=== PATIENT | female | born 1950 | race Caucasian/White ===

== ENCOUNTER 2018-01-12 08:30 | Emergency (ER) | payer OTHER ==
--- NOTE | 2018-01-12 08:37 | EDPHY ---
H & P Time Seen by Provider: 01/12/18 08:31 HPI/ROS: CHIEF COMPLAINT: Bustamante catheter problem HISTORY OF PRESENT ILLNESS: 67-year-old woman with history of schizophrenia has had a bladder catheter since October of this year for urinary retention which she tells me is due to medications. Has not had any urine output in over 6-8 hours. Feels bloated and has suprapubic fullness and discomfort. No fevers or chills, not associated with back pain or weakness or numbness in extremities except for chronic right drop which she has had after falling on her right leg in September. REVIEW OF SYSTEMS: Eye: no change in vision ENT: no sore throat Cardiac: no chest pain or syncope Pulmonary: no cough or SOB Abdomen: no vomiting, diarrhea, abdominal pain Musculoskeletal: no back pain Skin: no rash Neuro: no headache, foot drop on the right side as noted in the HPI Constitutional: no fever : HPI A comprehensive 10 point review of systems is otherwise negative aside from elements mentioned in the history of present illness. PAST MEDICAL HISTORY: Schizophrenia and indwelling urinary catheter Social history: [facility] General Appearance: Alert and conversant, cooperative. Eyes: No scleral icterus. ENT, Mouth: Normal mucous membranes. Respiratory: Normal respiratory effort, breath sounds equal, lungs are clear to auscultation. Cardiovascular: Regular rate and rhythm. Gastrointestinal: Abdomen is soft and non tender. Suprapubic fullness and distention. Neurological: Alert, face symmetric, normal motor and sensory in extremities, except for right foot drop. Skin: Warm and dry, no rashes. Musculoskeletal: No peripheral edema. Psychiatric: Not agitated. Emergency Department course/MDM: Catheter irrigation performed by the patient's nurse.\ [id number]: Feels better, symptoms resolved. Would treat for urinary tract infection with pyuria and bacteria with catheter obstruction pending culture. Does not appear to have cauda equina, pyelonephritis or sepsis, catheter misposition. Constitutional: Initial Vital Signs Temperature (C) 36.9 C 01/12/18 09:21 Heart Rate 88 01/12/18 09:21 Respiratory Rate 16 01/12/18 09:21 Blood Pressure 166/100 H 01/12/18 09:21 O2 Sat (%) 93 01/12/18 09:21 O2 Delivery Mode Room Air Allergies/Adverse Reactions: Benzodiazepines Allergy (Verified 01/12/18 09:25) oxycodone Allergy (Verified 01/12/18 09:25) Home Medications: Medication Instructions Recorded Aspirin 81mg (*) 01/12/18 Cephalexin [Keflex] 500 mg PO QID #28 cap 01/12/18 Miralax 17 gm (*) 01/12/18 Norvasc 5 mg (*) 01/12/18 Paroxetine HCl 01/12/18 Paxil 01/12/18 Perphenazine 01/12/18 Seroquel 01/12/18 Sertraline HCl 01/12/18 Vitamin B Complex/Folic Acid 01/12/18 Vitamin D3 01/12/18 Medical Decision Making - Data Points Laboratory Results: 01/12/18 09:03 Urine Color YELLOW Urine Appearance MODERATELY TURBID Urine pH 8.0 H (5.0-7.5) Ur Specific [place] 1.010 (1.002-1.030) Urine Protein 1+ H (NEGATIVE) Urine Ketones NEGATIVE (NEGATIVE) Urine Blood 2+ H (NEGATIVE) Urine Nitrate POSITIVE H (NEGATIVE) Urine Bilirubin NEGATIVE (NEGATIVE) Urine Urobilinogen NEGATIVE EU EU (0.2-1.0) Ur Leukocyte Esterase TRACE H (NEGATIVE) Urine RBC 50-182 /hpf H /hpf (0-3) Urine WBC 15-25 /hpf H /hpf (0-3) Ur Epithelial Cells NONE SEEN /lpf /lpf (NONE-1+) Calcium Oxalate Crystal PRESENT /hpf /hpf (NONE-1+) Amorphous Sediment PRESENT /hpf /hpf (NONE-1+) Urine Bacteria 2+ /hpf H /hpf (NONE SEEN) Urine Mucus TRACE /lpf /lpf (NONE-1+) Urine Glucose NEGATIVE (NEGATIVE) Medications Given: Discontinued Medications Cephalexin HCl (Keflex) 500 mg PO EDNOW ONE PRN Reason: Protocol Stop: 01/12/18 09:39 Last Admin: 01/12/18 10:10 Dose: 500 mg Departure - Departure Disposition: Home, Routine, Self-Care Clinical Impression: Bustamante catheter problem Qualifiers: Encounter type: initial encounter Qualified Code(s): T83.9XXA - Unspecified complication of genitourinary prosthetic device, implant and graft, initial encounter Urinary tract infection Qualifiers: Urinary tract infection type: catheter-associated UTI Indwelling urinary catheter type: indwelling urethral catheter Encounter type: initial encounter Qualified Code(s): T83.511A - Infection and inflammatory reaction due to indwelling urethral catheter, initial encounter; N39.0 - Urinary tract infection , site not specified; N39.0 - Urinary tract infection, site not specified Condition: Good Instructions: Cephalexin (By mouth), Bustamante Catheter Placement and Care (ED) Additional Instructions: Call [phone] in 2 days for urine culture result. Referrals: [facility] ,. [Edm Groups for Call Sched] - As per Instructions Prescriptions: Cephalexin [Keflex] 500 mg PO QID #28 cap
[2018-01-12 09:24] VITALS: RESP 16
[2018-01-12] MEDS ORDERED: CEPHALEXIN 500 MG CAP PO ONE (09:38)
[2018-01-12 10:12] VITALS: BP 164/98; PULSE 87; TEMP 97.9; O2SAT 92
== END 2018-01-12 10:50 | disposition home or self-care (01) ==
LOC: EDUNIT# → EDBD
PROC: 0T9B70Z Drainage of Bladder with Drainage Device, Via Natural or Artificial Opening (ICD-10-PCS; principal; 2018-01-12)
DX: T83.511A Infection and inflammatory reaction due to indwelling urethral catheter, initial encounter (principal); N39.0 Urinary tract infection, site not specified; B95.2 Enterococcus as the cause of diseases classified elsewhere; Z79.82 Long term (current) use of aspirin; Y73.2 Prosthetic and other implants, materials and accessory gastroenterology and urology devices associated with adverse incidents

== ENCOUNTER 2018-01-23 04:53 | Emergency (ER) | payer OTHER ==
--- NOTE | 2018-01-23 04:59 | EDPHY ---
H & P Time Seen by Provider: 01/23/18 04:56 HPI/ROS: HPI CHIEF COMPLAINT: Bustamante catheter dislodgement HISTORY OF PRESENT ILLNESS: Patient very pleasant 67-year-old female she has a chronic indwelling Bustamante due to urinary retention, additionally has hypertension and drop foot, she resides at [facility], at some point her Bustamante catheter became dislodged. Patient thinks approximately 5 hr ago. She states that she has been urinating around it. Denies any fever back pain denies vomiting denies significant abdominal pain. She presents by EMS to have her Bustamante catheter readjusted. Past Medical History: Hypertension, urinary retention, dropped foot, chronic indwelling Bustamante Past Surgical History: Hysterectomy Social History: Lives at [facility] Family History: None. ROS REVIEW OF SYSTEMS: A comprehensive 10 point review of systems is otherwise negative aside from elements mentioned in the history of present illness. Exam Constitutional appears well nontoxic, triage nursing summary reviewed, vital signs reviewed, awake/alert. Eyes normal conjunctivae and sclera, EOMI, PERRLA. HENT normal inspection, atraumatic, moist mucus membranes, no epistaxis, neck supple/ no meningismus, no raccoon eyes. Respiratory clear to auscultation bilaterally, normal breath sounds, no respiratory distress, no wheezing. Cardiovascular rate normal, regular rhythm, no murmur, no edema, distal pulses normal. Gastrointestinal no abdominal distention, specifically no suprapubic distention or tenderness, soft, non-tender, no rebound, no guarding, normal bowel sounds, no distension, no pulsatile mass. Genitourinary no CVA tenderness. Musculoskeletal no midline vertebral tenderness, full range of motion, no calf swelling, no tenderness of extremities, no meningismus, good pulses, neurovascularly intact. Skin pink, warm, & dry, no rash, skin atraumatic. Neurologic awake, alert and oriented x 3, AAOx3, moves all 4 extremities equally, motor intact, sensory intact, CN II-XII intact, normal cerebellar, normal vision, normal speech. Psychiatric normal mood/affect. Heme/Lymph/Immune no lymphadenopathy. Differential Diagnosis: Includes but is not limited to in a particular order Bustamante catheter adjustment, Bustamante catheter dislodgement, obstructed Bustamante catheter Medical Decision Making: Plan for this patient will remove her current Bustamante catheter and replace. Re-evaluate. Re-evaluation: 517: Bustamante catheter was replaced. She feels much better after new Bustamante catheter placed. There was clear urine that returned. We repositioned her new catheter she is happy with this. She would like to go back home. Return precautions discussed. She understands return emergency room if she has any worsening symptoms questions or concerns. Source: Patient, EMS - Medical/Surgical History Hx Asthma: No Hx Chronic Respiratory Disease: No Hx Diabetes: No Hx Cardiac Disease: No Hx Renal Disease: No Hx Cirrhosis: No Hx Alcoholism: No Hx HIV/AIDS: No Hx Splenectomy or Spleen Trauma: No Other PMH: hyperlipidemia, schizophrenia, HTN, generalized muscle weakness, falls - Social History Smoking Status: Never smoked Allergies/Adverse Reactions: Benzodiazepines Allergy (Verified 01/12/18 09:25) oxycodone Allergy (Verified 01/12/18 09:25) Home Medications: Medication Instructions Recorded Aspirin 81mg (*) 01/12/18 Cephalexin [Keflex] 500 mg PO QID #28 cap 01/12/18 Miralax 17 gm (*) 01/12/18 Norvasc 5 mg (*) 01/12/18 Paroxetine HCl 01/12/18 Paxil 01/12/18 Perphenazine 01/12/18 Seroquel 01/12/18 Sertraline HCl 01/12/18 Vitamin B Complex/Folic Acid 01/12/18 Vitamin D3 01/12/18 Departure - Departure Disposition: Home, Routine, Self-Care Clinical Impression: Dislodged Bustamante catheter Qualifiers: Encounter type: initial encounter Qualified Code(s): T83.021A - Displacement of indwelling urethral catheter, initial encounter Condition: Good Instructions: [facility] Patient Education, Infection Prevention, Bustamante Catheter Placement and Care (ED) Additional Instructions: 1. Return emergency room if you have worsening abdominal pain, fever, problems with the Bustamante catheter. Referrals: Patient,NotPresent [Primary Care Provider] - As per Instructions
[2018-01-23 05:20] VITALS: BP 181/110; PULSE 86; RESP 16; TEMP 98.6; O2SAT 96
== END 2018-01-23 05:45 | disposition home or self-care (01) ==
LOC: EDUNIT#
PROC: 0T9B70Z Drainage of Bladder with Drainage Device, Via Natural or Artificial Opening (ICD-10-PCS; principal; 2018-01-23)
DX: T83.021A Displacement of indwelling urethral catheter, initial encounter (principal); I10 Essential (primary) hypertension; Z79.82 Long term (current) use of aspirin; Y73.2 Prosthetic and other implants, materials and accessory gastroenterology and urology devices associated with adverse incidents

== ENCOUNTER 2018-01-26 19:44 | Emergency (ER) | payer OTHER ==
--- NOTE | 2018-01-26 19:48 | EDPHY ---
H & P Time Seen by Provider: 01/26/18 19:48 HPI/ROS: CHIEF COMPLAINT: Bustamante catheter malfunction HISTORY OF PRESENT ILLNESS: The patient presents to the ED with complaints of a Bustamante catheter which has become blocked and she is draining around the device. The patient has a history of chronic urinary retention. The Bustamante catheter was replaced in the ED 2 days ago. The leg bag was not properly secured and is likely resulted in the catheter becoming dislodged. The patient denies any fever, vomiting or flank pain. REVIEW OF SYSTEMS: A comprehensive 10 point review of systems is otherwise negative aside from elements mentioned in the history of present illness. Source: Patient Exam Limitations: No limitations - Medical/Surgical History Hx Asthma: No Hx Chronic Respiratory Disease: No Hx Diabetes: No Hx Cardiac Disease: No Hx Renal Disease: No Hx Cirrhosis: No Hx Alcoholism: No Hx HIV/AIDS: No Hx Splenectomy or Spleen Trauma: No Other PMH: hyperlipidemia, schizophrenia, HTN, generalized muscle weakness, falls - Social History Smoking Status: Never smoked - Physical Exam Exam: General Appearance: Alert, no distress Eyes: Pupils equal and round no pallor or injection ENT, Mouth: Mucous membranes moist Respiratory: There are no retractions, lungs are clear to auscultation Cardiovascular: Regular rate and rhythm Gastrointestinal: Abdomen is soft and nontender, no masses, bowel sounds normal Neurological: Grossly normal motor exam Skin: Warm and dry, no rashes Musculoskeletal: Neck is supple nontender Extremities: symmetrical, full range of motion Allergies/Adverse Reactions: Benzodiazepines Allergy (Verified 01/12/18 09:25) oxycodone Allergy (Verified 01/12/18 09:25) Home Medications: Medication Instructions Recorded Aspirin 81mg (*) 01/12/18 Cephalexin [Keflex] 500 mg PO QID #28 cap 01/12/18 Miralax 17 gm (*) 01/12/18 Norvasc 5 mg (*) 01/12/18 Paroxetine HCl 01/12/18 Paxil 01/12/18 Perphenazine 01/12/18 Seroquel 01/12/18 Sertraline HCl 01/12/18 Vitamin B Complex/Folic Acid 01/12/18 Vitamin D3 01/12/18 Medical Decision Making ED Course/Re-evaluation: The Bustamante catheter was replaced in the emergency department. The patient is well-appearing with stable vital signs. She will be discharged back to to her assisted living facility. Departure - Departure Disposition: Home, Routine, Self-Care Clinical Impression: Malfunction of Bustamante catheter, Urinary retention Condition: Good Instructions: Chronic Urinary Retention in Women (ED) Additional Instructions: 1. Return to the ED for any fever, back pain, vomiting or other concerns. 2. Please schedule a follow-up appointment with your primary care provider as needed. Referrals: Patient,NotPresent [Primary Care Provider] - As per Instructions
[2018-01-26 20:10] VITALS: BP 98/81
== END 2018-01-26 21:35 | disposition home or self-care (01) ==
LOC: EDUNIT#
PROC: 0T9B70Z Drainage of Bladder with Drainage Device, Via Natural or Artificial Opening (ICD-10-PCS; principal; 2018-01-26)
DX: T83.098A Other mechanical complication of other urinary catheter, initial encounter (principal); R33.9 Retention of urine, unspecified; I10 Essential (primary) hypertension; Z79.82 Long term (current) use of aspirin; Y82.8 Other medical devices associated with adverse incidents

== ENCOUNTER 2018-01-31 22:29 | Emergency (ER) | payer OTHER ==
--- NOTE | 2018-01-31 22:36 | EDPHY ---
H & P Time Seen by Provider: 01/31/18 22:33 HPI/ROS: HPI CHIEF COMPLAINT: Bustamante catheter problem. HISTORY OF PRESENT ILLNESS: Patient is 67-year-old female she presents emergency room as her Bustamante catheter has been dislodged. She has a chronic indwelling Bustamante catheter. She presents from [facility]. She denies any complaints denies abdominal pain chest pain or shortness of breath denies fever back pain. Unclear when her Bustamante became dislodged. Past Medical History: Hypertension, chronic indwelling Bustamante, foot drop Past Surgical History: No recent surgery Social History: Lives at [place]. Family History: Noncontributory ROS REVIEW OF SYSTEMS: A comprehensive 10 point review of systems is otherwise negative aside from elements mentioned in the history of present illness. Exam Constitutional appears well nontoxic, triage nursing summary reviewed, vital signs reviewed, awake/alert. Eyes normal conjunctivae and sclera, EOMI, PERRLA. HENT normal inspection, atraumatic, moist mucus membranes, no epistaxis, neck supple/ no meningismus, no raccoon eyes. Respiratory clear to auscultation bilaterally, normal breath sounds, no respiratory distress, no wheezing. Cardiovascular rate normal, regular rhythm, no murmur, no edema, distal pulses normal. Gastrointestinal soft, non-tender, no rebound, no guarding, normal bowel sounds, no distension, no pulsatile mass. Genitourinary no CVA tenderness. Musculoskeletal no midline vertebral tenderness, full range of motion, no calf swelling, no tenderness of extremities, no meningismus, good pulses, neurovascularly intact. Skin pink, warm, & dry, no rash, skin atraumatic. Neurologic awake, alert and oriented x 3, AAOx3, moves all 4 extremities equally, motor intact, sensory intact, CN II-XII intact, normal cerebellar, normal vision, normal speech. Psychiatric normal mood/affect. Heme/Lymph/Immune no lymphadenopathy. Differential Diagnosis: Includes but is not limited to in a particular order Bustamante catheter obstruction, Bustamante catheter dislodgement. Medical Decision Making: Plan for this patient change Bustamante catheter, and re-evaluate. 2305: Bustamante catheter has been replaced. 800 cc of fluid out. She feels much better abdomen soft. She denies any back pain or fever. She would like to go home. I discussed return precautions with her. Source: Patient, EMS - Medical/Surgical History Hx Asthma: No Hx Chronic Respiratory Disease: No Hx Diabetes: No Hx Cardiac Disease: No Hx Renal Disease: No Hx Cirrhosis: No Hx Alcoholism: No Hx HIV/AIDS: No Hx Splenectomy or Spleen Trauma: No Other PMH: hyperlipidemia, schizophrenia, HTN, generalized muscle weakness, falls - Social History Smoking Status: Never smoked Constitutional: Initial Vital Signs Temperature (C) 37 C 01/31/18 22:36 Respiratory Rate 84 H 01/31/18 22:36 Blood Pressure 175/106 H 01/31/18 22:36 O2 Sat (%) 92 01/31/18 22:36 O2 Delivery Mode Room Air Allergies/Adverse Reactions: Benzodiazepines Allergy (Verified 01/31/18 23:02) oxycodone Allergy (Verified 01/31/18 23:02) Home Medications: Medication Instructions Recorded Aspirin 81mg (*) 01/12/18 Cephalexin [Keflex] 500 mg PO QID #28 cap 01/12/18 Miralax 17 gm (*) 01/12/18 Norvasc 5 mg (*) 01/12/18 Paroxetine HCl 01/12/18 Paxil 01/12/18 Perphenazine 01/12/18 Seroquel 01/12/18 Sertraline HCl 01/12/18 Vitamin B Complex/Folic Acid 01/12/18 Vitamin D3 01/12/18 Departure - Departure Disposition: Home, Routine, Self-Care Clinical Impression: Bustamante catheter problem Qualifiers: Encounter type: initial encounter Qualified Code(s): T83.9XXA - Unspecified complication of genitourinary prosthetic device, implant and graft, initial encounter Condition: Good Instructions: [facility] Patient Education, Infection Prevention, Bustamante Catheter Placement and Care (ED) Additional Instructions: 1. Return emergency room if develops any worsening symptoms questions or concerns. Referrals: [facility] [Other] - As per Instructions
[2018-01-31 23:40] VITALS: BP 159/106
== END 2018-01-31 23:30 | disposition home or self-care (01) ==
LOC: EDUNIT#
DX: T83.9XXA Unspecified complication of genitourinary prosthetic device, implant and graft, initial encounter (principal); I10 Essential (primary) hypertension; Z79.82 Long term (current) use of aspirin; Y73.2 Prosthetic and other implants, materials and accessory gastroenterology and urology devices associated with adverse incidents

== ENCOUNTER 2018-09-04 17:10 | Emergency (ER) | payer OTHER ==
--- NOTE | 2018-09-04 17:19 | EDPHY ---
H & P Time Seen by Provider: 09/04/18 17:16 HPI/ROS: CHIEF COMPLAINT: Gross hematuria HISTORY OF PRESENT ILLNESS: 68-year-old female with schizophrenia and chronic indwelling Bustamante catheter presents with gross hematuria. Staff at [facility] noted blood in her urine bag today. The patient is asymptomatic. Takes an aspirin a day. No abdominal pain, vomiting or fever. No recent trauma. REVIEW OF SYSTEMS: complete 10 point ROS reviewed and is negative except for the noted elements in the HPI - Medical/Surgical History Hx Asthma: No Hx Chronic Respiratory Disease: No Hx Diabetes: No Hx Cardiac Disease: No Hx Renal Disease: No Hx Cirrhosis: No Hx Alcoholism: No Hx HIV/AIDS: No Hx Splenectomy or Spleen Trauma: No Other PMH: hyperlipidemia, schizophrenia, HTN, generalized muscle weakness, falls - Social History Smoking Status: Never smoked - Physical Exam Exam: General Appearance: Alert, pleasant Eyes: Pupils equal and round, no conjunctival pallor or injection ENT, Mouth: Mucous membranes moist Neck: Normal inspection Respiratory: Lungs are clear to auscultation Cardiovascular: Regular rate and rhythm Gastrointestinal: Abdomen is soft and nontender Neurological: A&O, nonfocal, normal gait Skin: Warm and dry, no rash Extremities: Nontender, no pedal edema Psychiatric: Mood and affect normal Constitutional: Initial Vital Signs Temperature (C) 36.6 C 09/04/18 17:15 Heart Rate 81 09/04/18 17:15 Respiratory Rate 18 09/04/18 17:15 Blood Pressure 189/109 H 09/04/18 17:15 O2 Sat (%) 94 09/04/18 17:15 O2 Delivery Mode Room Air Allergies/Adverse Reactions: Benzodiazepines Allergy (Verified 01/31/18 23:02) oxycodone Allergy (Verified 01/31/18 23:02) Home Medications: Medication Instructions Recorded Aspirin 81mg (*) 01/12/18 Miralax 17 gm (*) 01/12/18 Norvasc 5 mg (*) 01/12/18 Paroxetine HCl 01/12/18 Paxil 01/12/18 Perphenazine 01/12/18 Seroquel 01/12/18 Sertraline HCl 01/12/18 Vitamin B Complex/Folic Acid 01/12/18 Vitamin D3 01/12/18 Cephalexin [Keflex (*)] 500 mg PO BID #20 cap 09/04/18 Medical Decision Making ED Course/Re-evaluation: This patient presents with gross hematuria. The urine is pink-tinged, no blood clots. There is also sludge in her urinary bag. The Bustamante catheter was changed and a a urinalysis was obtained from the newly placed Bustamante catheter. Urinalysis results reviewed. Given this patient has new hematuria, will send a urine culture and will treat for a possible urinary tract infection. Patient understands that this may be a contaminant rather than a true urinary tract infection. Differential Diagnosis: Includes though not limited to acute cystitis, kidney stone, coagulopathy, severe hemorrhage. - Data Points Laboratory Results: 09/04/18 17:40 Urine Color YELLOW Urine Appearance TURBID Urine pH 6.0 (5.0-7.5) Ur Specific [place] 1.003 (1.002-1.030) Urine Protein 2+ H (NEGATIVE) Urine Ketones NEGATIVE (NEGATIVE) Urine Blood 3+ H (NEGATIVE) Urine Nitrate NEGATIVE (NEGATIVE) Urine Bilirubin NEGATIVE (NEGATIVE) Urine Urobilinogen NEGATIVE EU EU (0.2-1.0) Ur Leukocyte Esterase 2+ H (NEGATIVE) Urine RBC 50-182 /hpf H /hpf (0-3) Urine WBC 50-182 /hpf H /hpf (0-3) Ur Epithelial Cells 4+ /lpf H /lpf (NONE-1+) Urine Bacteria 1+ /hpf H /hpf (NONE SEEN) Urine Mucus 1+ /lpf /lpf (NONE-1+) Urine Glucose NEGATIVE (NEGATIVE) Medications Given: Discontinued Medications Cephalexin HCl (Keflex) 500 mg PO EDNOW ONE PRN Reason: Protocol Stop: 09/04/18 18:15 Last Admin: 09/04/18 18:28 Dose: 500 mg Departure - Departure Disposition: Home, Routine, Self-Care Clinical Impression: Urinary tract infection Qualifiers: Urinary tract infection type: acute cystitis Hematuria presence: with hematuria Qualified Code(s): N30.01 - Acute cystitis with hematuria Condition: Good Instructions: Catheter-associated Urinary Tract Infection (ED) Referrals: Queta Bush MD [Medical Doctor] - As per Instructions Prescriptions: Cephalexin [Keflex (*)] 500 mg PO BID #20 cap
[2018-09-04] MEDS ORDERED: CEPHALEXIN 500 MG CAP PO ONE (18:14)
[2018-09-04 20:41] VITALS: BP 169/96
== END 2018-09-04 21:13 | disposition home or self-care (01) ==
LOC: EDUNIT#
PROC: 0T9B70Z Drainage of Bladder with Drainage Device, Via Natural or Artificial Opening (ICD-10-PCS; principal; 2018-09-04)
DX: N30.01 Acute cystitis with hematuria (principal); E78.5 Hyperlipidemia, unspecified; I10 Essential (primary) hypertension; F20.9 Schizophrenia, unspecified

== ENCOUNTER 2019-04-13 15:39 | Emergency (ER) | payer OTHER | END 2019-04-13 17:54 | disposition home or self-care (01) ==